=== PATIENT | female | born 1985 | race Caucasian/White ===

== ENCOUNTER 2017-12-28 18:41 | Emergency (ER) | payer SELFPAY ==
[~2017-12-28] VITALS: Ht 160 cm; Wt 77.3 kg
[2017-12-28 18:52] VITALS: BP 151/104
[2017-12-28] MEDS ORDERED: ALBU8HFA IH (19:06)
== END 2017-12-28 20:38 | disposition home or self-care (01) ==
LOC: EMS 18:42
DX: M54.5 Low back pain (principal); J45.909 Unspecified asthma, uncomplicated; Z79.899 Other long term (current) drug therapy; V43.62XA Car passenger injured in collision with other type car in traffic accident, initial encounter; Y93.89 Activity, other specified; Y92.410 Unspecified street and highway as the place of occurrence of the external cause; Y99.8 Other external cause status
CPT/HCPCS: 99281